=== PATIENT | female | born 1955 | race Caucasian/White ===

== ENCOUNTER → 2017-01-01 | Day surgery (SDC) | payer MEDICARE, OTHER ==
[2017-01-01 06:26] LABS: HCT 38.6 % (37.0-47.0); HGB 13.8 g/dl (12.5-16.0); MCHC 35.8 g/dL (32.0-36.0); MCV 83.9 fL (78.0-100.0); MPV 11.1 fL (6.0-9.5); RBC 4.6 M/uL (4.20-5.40); RDW 14.6 % (11.5-14.0); WBC 8.5 K/uL (4.0-10.5)
== END | disposition home or self-care (01) ==
LOC: FAS 05:36
PROVIDERS: Legal Medicine
DX: M75.02 Adhesive capsulitis of left shoulder (principal); K21.9 Gastro-esophageal reflux disease without esophagitis; I10 Essential (primary) hypertension; E11.9 Type 2 diabetes mellitus without complications; Z90.49 Acquired absence of other specified parts of digestive tract; Z90.710 Acquired absence of both cervix and uterus; Z79.4 Long term (current) use of insulin; Z79.899 Other long term (current) drug therapy; Z98.890 Other specified postprocedural states
CPT/HCPCS: 36415; 97110; 97161; J1885; J2405; J2704; J2795; J3010